=== PATIENT | male | born 1965 | race Caucasian/White ===

== ENCOUNTER 2018-12-04 22:35 | Emergency (ER) | payer SELFPAY ==
[~2018-12-04] VITALS: Ht 170.2 cm; Wt 92.4 kg
[2018-12-04 22:38] VITALS: BP 167/80; PULSE 82; RESP 18; Ht 170.2 cm; Wt 92.4 kg
== END 2018-12-05 01:35 | disposition left against medical advice (07) ==
LOC: FTE 22:35
DX: Z53.21 Procedure and treatment not carried out due to patient leaving prior to being seen by health care provider (principal)